=== PATIENT | female | born 1945 | race Hispanic/Latino ===

== ENCOUNTER 2022-05-15 10:03 | Emergency (ER) | payer OTHER | END 2022-05-15 10:48 | disposition home or self-care (01) | LOC: CSHERS 10:03 | DX: S91.312A Laceration without foreign body, left foot, initial encounter (principal); E11.9 Type 2 diabetes mellitus without complications; I10 Essential (primary) hypertension; X58.XXXA Exposure to other specified factors, initial encounter ==

== ENCOUNTER 2022-05-23 13:27 | Outpatient (CLI) | payer OTHER | END 2022-05-23 13:28 | disposition home or self-care (01) | LOC: CSHWCC 13:27 | PROVIDERS: ATTEND Nurse Practitioner Family | DX: S91.302D Unspecified open wound, left foot, subsequent encounter (principal); R60.0 Localized edema | CPT/HCPCS: 97139; 97607; G0463; 99203 ==

== ENCOUNTER 2022-05-30 10:47 | Outpatient (CLI) | payer OTHER | END 2022-05-30 10:48 | disposition home or self-care (01) | LOC: CSHWCC 10:47 | PROVIDERS: ATTEND Nurse Practitioner Family | DX: S91.302D Unspecified open wound, left foot, subsequent encounter (principal); R60.0 Localized edema | CPT/HCPCS: 97607 ==

== ENCOUNTER 2022-06-06 13:44 | Outpatient (CLI) | payer OTHER | END 2022-06-06 13:45 | disposition home or self-care (01) | LOC: CSHWCC 13:44 | PROVIDERS: ATTEND Nurse Practitioner Family | DX: S91.302D Unspecified open wound, left foot, subsequent encounter (principal); R60.0 Localized edema ==

== ENCOUNTER 2022-06-20 08:14 | Outpatient (CLI) | payer OTHER | END 2022-06-20 08:15 | disposition home or self-care (01) | LOC: CSHWCC 08:14 | PROVIDERS: ATTEND Nurse Practitioner Family | DX: S91.302D Unspecified open wound, left foot, subsequent encounter (principal); R60.0 Localized edema ==

== ENCOUNTER 2022-07-04 08:03 | Outpatient (CLI) | payer OTHER | END 2022-07-04 08:04 | disposition home or self-care (01) | LOC: CSHWCC 08:03 | PROVIDERS: ATTEND Nurse Practitioner Family | DX: S91.302D Unspecified open wound, left foot, subsequent encounter (principal); R60.0 Localized edema ==

== ENCOUNTER 2023-05-15 14:24 | Emergency (ER) | payer OTHER ==
[2023-05-15] MEDS ORDERED: HYDROcodone/Acetaminophen 5/325 mg Tablet ONE (15:36)
[2023-05-15] MEDS ORDERED: Orphenadrine Citrate 60 MG/2 ML VIAL ONE (15:36)
== END 2023-05-15 15:31 | disposition home or self-care (01) ==
LOC: CSHERS 14:24
DX: M54.50 Low back pain, unspecified (principal); I10 Essential (primary) hypertension; E11.9 Type 2 diabetes mellitus without complications
CPT/HCPCS: 96372; 99283; J2360

== ENCOUNTER 2023-08-21 10:45 | Emergency (ER) | payer OTHER | END 2023-08-21 13:00 | disposition home or self-care (01) | LOC: CSHERS 10:45 | DX: M76.61 Achilles tendinitis, right leg (principal); M77.31 Calcaneal spur, right foot; E11.9 Type 2 diabetes mellitus without complications; I10 Essential (primary) hypertension; Z75.8 Other problems related to medical facilities and other health care; Z79.84 Long term (current) use of oral hypoglycemic drugs; Z79.899 Other long term (current) drug therapy ==